=== PATIENT | male | born 1985 | race Two or more races ===

== ENCOUNTER 2018-06-30 00:35 | Emergency (ER) | payer MEDICAID ==
[~2018-06-30] VITALS: Ht 170.2 cm; Wt 75.3 kg
[2018-06-30 01:23] LABS: Basophils # (auto) 0 uL; Basophils % (auto) 0.6 % (0.0-2.0); Eosinophils # (auto) 0 uL; Eosinophils % (auto) 0.5 % (0.0-7.0); Hemoglobin 16.6 g/dL (13.5-17.5); Lymphocytes # (auto) 1.2 uL; Mean Corpuscular Hemoglobin 31.2 pg (28.0-32.0); Mean Corpuscular Hgb Conc. 34.5 g/dL (32.0-36.0); Mean Corpuscular Volume 90.6 fL (80.0-100.0); Monocytes # (auto) 0.6 uL; Monocytes % (auto) 9.1 % (0.0-12.0); Neutrophils # (auto) 4.4 uL; Neutrophils % (auto) 70.8 % (37.0-80.0); Nucleated Red Blood Cells % 0.1 %; Platelet Count (auto) 309 10^3/uL (140-450); Red Cell Distribution Width 14.5 % (11.8-14.3); White Blood Cell 6.2 10^3/uL (4.4-10.8)
[2018-06-30 01:48] LABS: Albumin 4.1 g/dL (3.4-5.0); Calcium 8.2 mg/dL (8.5-10.1); Potassium 3.8 mmol/L (3.5-5.1)
[2018-06-30 01:50] LABS: Bilirubin, Total 0.4 mg/dL (0.2-1.0); Total Protein 7.4 g/dL (6.4-8.2)
[2018-06-30 02:13] LABS: Salicylate < 1.7 mg/dL (2.8-20.0)
[2018-06-30 02:14] LABS: Acetaminophen < 2.0 ug/mL (10-30)
[2018-06-30 02:47] LABS: Partial Thromboplastin Time 26.8 sec (23.78-33.04); Prothrombin Time 10.7 sec (9.27-12.13)
[2018-06-30] MEDS ORDERED: MVI in SODIUM CHLORIDE 0.9% 1,010 ML ONE (02:58)
[2018-06-30] MEDS ORDERED: THIAMINE HCL 100 MG TAB ONE (03:00)
[2018-06-30] MEDS ORDERED: MAGNESIUM SULFATE 1GM/100ML 100 ML IV ONE ×2 (03:02→03:15)
[2018-06-30 03:10] LABS: Blood Alcohol < 3.0 mg/dL (0-5); Magnesium 2.4 mg/dL (1.6-2.6)
[2018-06-30] MEDS ORDERED: THIAMINE HCL 100 MG TAB PO ONE (03:15)
[2018-06-30 06:27] LABS: Barbiturate Scree,Urine NEGATIVE (NEGATIVE)
[2018-06-30 06:34] LABS: Urine Bacteria NONE SEEN /hpf (None Seen); Urine Blood Negative /uL (Negative); Urine Mucus FEW (None Seen); Urine Specific Gravity 1.021 (1.001-1.035); Urine WBC 1 /hpf (0 - 3)
[2018-06-30 07:24] LABS: Alcohol, Urine < 3.0 mg/dL (0-5); Amphetamine Screen, Urine POSITIVE (NEGATIVE); Benzodiazephine Screen, Urine NEGATIVE (NEGATIVE); Cannabinoid Screen, Urine POSITIVE (NEGATIVE); Cocaine Screen, Urine NEGATIVE (NEGATIVE); Opiate Scree,Urine NEGATIVE (NEGATIVE); Phencyclidine Screen, Urine NEGATIVE (NEGATIVE)
[2018-06-30 08:00] VITALS: BP 120/62
[2018-06-30] MEDS ORDERED: MULTIPLE VITAMIN 10 ML, MAGNESIUM SULF SDV 50% 8 MEQ in SODIUM CHLORIDE 0.9% 1,000 ML IV ONE (12:00)
== END 2018-06-30 08:12 | disposition home or self-care (01) ==
LOC: ER 00:41
DX: F10.129 Alcohol abuse with intoxication, unspecified (principal); F17.210 Nicotine dependence, cigarettes, uncomplicated; F15.10 Other stimulant abuse, uncomplicated; Y90.9 Presence of alcohol in blood, level not specified
CPT/HCPCS: 36415; 80053; 80307; 80320; 80329; 81001; 83735; 84484; 85025; 85610; 85730; 96365; 96366; 96368; 99283; J3411; J3475; J7030

== ENCOUNTER 2018-07-10 08:59 | Emergency (ER) | payer MEDICAID ==
[~2018-07-10] VITALS: Ht 172.7 cm; Wt 74.8 kg
[2018-07-10 10:12] LABS: Basophils # (auto) 0 uL; Basophils % (auto) 0.4 % (0.0-2.0); Eosinophils # (auto) 0 uL; Eosinophils % (auto) 0.5 % (0.0-7.0); Hemoglobin 18.3 g/dL (13.5-17.5); Lymphocytes # (auto) 1.2 uL; Mean Corpuscular Hemoglobin 30.7 pg (28.0-32.0); Monocytes # (auto) 0.5 uL
[2018-07-10 10:14] LABS: Hematocrit 54.2 % (41.0-53.0); Mean Corpuscular Hgb Conc. 33.8 g/dL (32.0-36.0); Mean Corpuscular Volume 90.7 fL (80.0-100.0); Monocytes % (auto) 8.7 % (0.0-12.0); Neutrophils # (auto) 4.2 uL; Neutrophils % (auto) 70.4 % (37.0-80.0); Nucleated Red Blood Cells % 0.8 %; Platelet Count (auto) 289 10^3/uL (140-450); Red Blood Cells 5.97 10^6/uL (4.5-5.90); Red Cell Distribution Width 14.5 % (11.8-14.3)
[2018-07-10 10:24] LABS: Albumin 4.2 g/dL (3.4-5.0); BUN/Creatinine Ratio 6.9; Calcium 9.1 mg/dL (8.5-10.1)
[2018-07-10 10:27] LABS: Bilirubin, Total 0.4 mg/dL (0.2-1.0); Total Protein 7.8 g/dL (6.4-8.2)
[2018-07-10 12:22] VITALS: BP 143/98
[2018-07-10 12:22] LABS: Urine Bacteria NONE SEEN /hpf (None Seen); Urine Blood Negative /uL (Negative); Urine Mucus FEW (None Seen); Urine Specific Gravity 1.025 (1.001-1.035); Urine WBC 1 /hpf (0 - 3)
== END 2018-07-10 12:29 | disposition home or self-care (01) ==
LOC: ER 08:59
DX: K29.70 Gastritis, unspecified, without bleeding (principal); R51 Headache; F17.210 Nicotine dependence, cigarettes, uncomplicated
CPT/HCPCS: 36415; 74176; 80053; 81001; 85025

== ENCOUNTER 2020-07-06 22:03 | Emergency (ER) | payer MEDICAID ==
[~2020-07-06] VITALS: Ht 167.6 cm; Wt 75.7 kg
[2020-07-06 22:22] VITALS: BP 150/102
== END 2020-07-06 22:15 | disposition left against medical advice (07) ==
LOC: ER 22:05
DX: S01.81XA Laceration without foreign body of other part of head, initial encounter (principal); X58.XXXA Exposure to other specified factors, initial encounter; Y93.89 Activity, other specified; Y92.89 Other specified places as the place of occurrence of the external cause; Y99.8 Other external cause status

== ENCOUNTER 2021-02-02 03:48 | Emergency (ER) | payer MEDICAID ==
[~2021-02-02] VITALS: Ht 167.6 cm; Wt 90.7 kg
[2021-02-02] MEDS ORDERED: KETOROLAC TROMETH 60MG/2ML VIAL IM ONE (04:45)
[2021-02-02] MEDS ORDERED: LIDOCAINE HCL 2% TOP JELLY 5ML TOP ONE (04:45)
[2021-02-02] MEDS ORDERED: ONDANSETRON ODT 4 MG TAB PO ONE (05:00)
[2021-02-02] MEDS ORDERED: MORPHINE SULFATE INJECTION 2 MG/ML SYRG IM ONE (05:00)
[2021-02-02 06:28] LABS: Basophils # (auto) 0.1 10 ^3/uL (0-0.2); Basophils % (auto) 1.1 % (0.0-2.0); Eosinophils # (auto) 0.1 10 ^3/uL (0-0.8); Eosinophils % (auto) 1.3 % (0.0-7.0); Hematocrit 46.5 % (41.0-53.0); Lymphocytes # (auto) 1.2 10 ^3/uL (0.4-5.4); Lymphocytes % (auto) 14.9 % (10.0-50.0); Mean Corpuscular Hemoglobin 30.8 pg (28.0-32.0); Mean Corpuscular Hgb Conc. 34.3 g/dL (32.0-36.0); Mean Corpuscular Volume 89.7 fL (80.0-100.0); Monocytes # (auto) 0.6 10 ^3/uL (0-1.3); Neutrophils % (auto) 75.7 % (37.0-80.0); Red Blood Cells 5.18 10^6/uL (4.5-5.90); Red Cell Distribution Width 13.9 % (11.8-14.3); White Blood Cell 7.9 10^3/uL (4.4-10.8)
[2021-02-02 06:36] LABS: Albumin 3.6 g/dL (3.4-5.0); Calcium 8.4 mg/dL (8.5-10.1); Potassium 3.7 mmol/L (3.5-5.1)
[2021-02-02 06:44] LABS: BUN/Creatinine Ratio 7.9; Bilirubin, Total 0.3 mg/dL (0.2-1.0); CRP High Sensitivity 3.57 mg/dL (< 0.3); Total Protein 6.8 g/dL (6.4-8.2)
[2021-02-02] MEDS ORDERED: IOHEXOL 300 MG/ML 100ML BOTTLE IJ ONE (06:57)
[2021-02-02 08:56] VITALS: BP 113/72
== END 2021-02-02 09:12 | disposition home or self-care (01) ==
LOC: ER 03:50
DX: L02.31 Cutaneous abscess of buttock (principal); K61.1 Rectal abscess; F17.210 Nicotine dependence, cigarettes, uncomplicated; E66.9 Obesity, unspecified; Z68.32 Body mass index [BMI] 32.0-32.9, adult
CPT/HCPCS: 10060; 36415; 72193; 76705; 80053; 83605; 85025; 85610; 85652; 86141; 87040; 96372; 99285; J1885; J2270; Q0162; Q9967

== ENCOUNTER 2024-09-24 19:57 | Emergency (ER) | payer MEDICAID ==
[~2024-09-24] VITALS: Ht 167.6 cm; Wt 71.5 kg
[2024-09-24 21:18] LABS: Basophils # (auto) 0.1 10 ^3/uL (0-0.2); Basophils % (auto) 0.8 % (0.0-2.0); Eosinophils # (auto) 0.1 10 ^3/uL (0-0.8); Eosinophils % (auto) 1.6 % (0.0-7.0); Hematocrit 43.8 % (41.0-53.0); Hemoglobin 15.3 g/dL (13.5-17.5); Lymphocytes % (auto) 27.5 % (10.0-50.0); Mean Corpuscular Hemoglobin 31.7 pg (28.0-32.0); Mean Corpuscular Volume 90.4 fL (80.0-100.0); Monocytes # (auto) 0.7 10 ^3/uL (0-1.3); Monocytes % (auto) 9.3 % (0.0-12.0); Neutrophils # (auto) 4.5 10 ^3/uL (1.6-8.6); Neutrophils % (auto) 60.8 % (37.0-80.0); Nucleated Red Blood Cells % 0.1 %; Platelet Count (auto) 274 10^3/uL (140-450); Red Blood Cells 4.84 10^6/uL (4.5-5.90); Red Cell Distribution Width 13.5 % (11.8-14.3); White Blood Cell 7.3 10^3/uL (4.4-10.8)
[2024-09-24 21:28] LABS: Chloride 106 mmol/L (98-107); Sodium 141 mmol/L (136-145)
[2024-09-24 21:29] LABS: Anion Gap 7 (5-15); Calcium 9.3 mg/dL (8.7-10.4); Carbon Dioxide 28 mmol/L (20-31)
[2024-09-24 21:31] LABS: Urine Bacteria None Seen /hpf (None Seen)
[2024-09-24 21:34] LABS: BUN/Creatinine Ratio 7.8 (10.0-20.0); Glucose 90 mg/dL (74-106)
--- NOTE | 2024-09-24 21:35 | ED.PDOC ---
Psychiatric HPI Comments 39 y.o male with PMHx of schizophrenia, depression, anxiety, depression and PTSD, presents to the ED for an evaluation of suicidal ideation. Patient reports planning to run into traffic to end his life with no intent of homicidal ideation. Patient reports intermittent compliance with medications. Patient has previous SI x 6 months ago. No other complaints at this time. Chief Complaint: Suicidal Time Seen by MD: 21:25 Primary Care Provider: UNK Reviewed Notes: Nurses Notes, Medications, Allergies Information Source: Patient Mode of Arrival: Ambulatory Severity of Pain: None Severity of Mental Status: Moderate Severity of Symptoms: Moderate Timing: Hours Duration: Since onset Presents with: Depression, Unclear Thinking, Suicidal Ideation Ingestion: None Circumstance: Medical Clearance Current substance abuse: Unknown Stressors: None History of: Depression, Anxiety, Schizophrenia, Bipolar, Suicidal Attempt Associated signs and symptoms: Depression Past Medical History PAST MEDICAL HISTORY: Anxiety, Depression, Schizophrenia Past Medical History (Other): PTSD and previous SI 6 months ago Surgical History: Denies all surgeries Family History Family History: Reviewed,noncontributory to illness Social History Smoker: Cigarettes, Less Than 1 Pack/Day Alcohol: Denies ETOH Use Drugs: Marijuana, Methamphetamine Lives In: Home Constitutional: denies: chills, diaphoresis, fatigue, fever, malaise, sweats, weakness, others EENTM: denies: blurred vision, double vision, ear bleeding, ear discharge, ear drainage, ear pain, ear ringing, eye pain, eye redness, hearing loss, mouth pain, mouth swelling, nasal discharge, nose bleeding, nose congestion, nose pain, photophobia, tearing, throat pain, throat swelling, voice changes, others Respiratory: denies: cough, hemoptysis, orthopnea, SOB at rest, shortness of breath, SOB with excertion, stridor, wheezing, others Cardiovascular: denies: chest pain, dizzy spells, diaphoresis, Dyspnea on exertion, edema, irregular heart beat, left arm pain, lightheadedness, palpitations, PND, syncope, others Gastrointestinal: denies: abdomen distended, abdominal pain, blood streaked bowels, constipated, diarrhea, dysphagia, difficulty swallowing, hematemesis, melena, nausea, poor appetite, poor fluid intake, rectal bleeding, rectal pain, vomiting, others Genitourinary: denies: burning, dysuria, flank pain, frequency, hematuria, incontinence, penile discharge, penile sore, pain, testicle pain, testicle swelling, urgency, others Neurological: denies: dizziness, fainting, headache, left sided numbness, left sided weakness, numbness, paresthesia, pre-existing deficit, right sided n umbness, right sided weakness, seizure, speech problems, tingling, tremors, weakness, others Musculoskeletal: denies: back pain, gout, joint pain, joint swelling, muscle pain, muscle stiffness, neck pain, others Integumetry: denies: bruises, change in color, change in hair/nails, dryness, laceration, lesions, lumps, rash, wounds, others Allergic/Immunocompromised: denies: Difficulty Healing, Frequent Infections, Hives, Itching, others Endocrine: denies: excessive hunger, excessive sweating, excessive thirst, excessive urination, flushing, intolerance to cold, intolerance to heat, unexplained weight gain, unexplained weight loss, others Psychiatric: reports: bipolar disorder, depression, suicidal; denies: anxiety, hopeless, panic disorder, schizophrenia, sleepless, others Physical Exam General Appearance: No Apparent Distress, Normal HEENT: Normal ENT Inspection, Pharynx Normal, TMs Normal Neck: Full Range of Motion, Non-Tender, Normal, Normal Inspection Respiratory: Chest Non-Tender, Lungs Clear, No Accessory Muscle Use, No Respiratory Distress, Normal Breath Sounds Cardiovascular: No Edema, No JVD, No Murmur, No Gallop, Normal Peripheral Pulses, Regular Rate/Rhythm Breast Exam: Deferred Gastrointestinal: No Organomegaly, Non Tender, No Pulsatile Mass, Normal Bowel Sounds, Soft Genitalia: Deferred Pelvic: Deferred Rectal: Deferred Extremities: No calf tenderness, Normal capillary refill, Normal inspection, Normal range of motion, Non-tender, No pedal edema Musculoskeletal : Apperance: Normal Neurologic: Alert, insulation worker II-XII nml as Tested, No Motor Deficits, Normal Affect, Normal Mood, No Sensory Deficits Cerebellar Function: Normal Reflexes: Normal Skin: Dry, Normal Color, Warm Lymphatic: No Adenopathy Was a procedure done? Was a procedure done?: No Psych Differential Dx Psych. Differential Dx: Anxiety, Bipolar Disorder, Depression, Schizoprenia, Suicidal X-Ray, Labs, Meds, VS Vital Signs Date Time Temp Pulse Resp B/P (MAP) Pulse Ox O2 Delivery O2 Flow Rate FiO2 09/24/24 21:10 97.8 71 18 124/80 (95) 98 97.8 Lab Test 09/24/24 21:08 09/24/24 20:58 Range/Units White Blood Count 7.3 4.4-10.8 10^3/uL Red Blood Count 4.84 4.5-5.90 10^6/uL Hemoglobin 15.3 13.5-17.5 g/dL Hematocrit 43.8 41.0-53.0 % Mean Corpuscular Volume 90.4 80.0-100.0 fL Mean Corpuscular Hemoglobin 31.7 28.0-32.0 pg Mean Corpuscular Hemoglobin Concent 35.0 32.0-36.0 g/dL Red Cell Distribution Width 13.5 11.8-14.3 % Platelet Count 274 140-450 10^3/uL Mean Platelet Volume 8.2 6.9-10.8 fL Neutrophils (%) (Auto) 60.8 37.0-80.0 % Lymphocytes (%) (Auto) 27.5 10.0-50.0 % Monocytes (%) (Auto) 9.3 0.0-12.0 % Eosinophils (%) (Auto) 1.6 0.0-7.0 % Basophils (%) (Auto) 0.8 0.0-2.0 % Neutrophils # (Auto) 4.5 1.6-8.6 10 ^3/uL Lymphocytes # (Auto) 2.0 0.4-5.4 10 ^3/uL Monocytes # (Auto) 0.7 0-1.3 10 ^3/uL Eosinophils # (Auto) 0.1 0-0.8 10 ^3/uL Basophils # (Auto) 0.1 0-0.2 10 ^3/uL Nucleated Red Blood Cells 0.1 % Sodium Level 141 136-145 mmol/L Potassium Level 3.3 L 3.5-5.1 mmol/L Chloride Level 106 98-107 mmol/L Carbon Dioxide Level 28 20-31 mmol/L Anion Gap 7 5-15 Blood Urea Nitrogen 8 L 9-23 mg/dL Creatinine 1.02 0.700-1.30 mg/dL Glomerular Filtration Rate Calc 96 >90 mL/min BUN/Creatinine Ratio 7.8 L 10.0-20.0 Serum Glucose 90 74-106 mg/dL Calcium Level 9.3 8.7-10.4 mg/dL Urine Color Light-yellow Yellow Urine Clarity Clear Clear Urine pH 6.0 5.0-9.0 Urine Specific [place] 1.005 1.001-1.035 Urine Protein Negative Negative Urine Ketones Negative Negative Urine Blood Negative Negative /uL Urine Nitrite Negative Negative Urine Bilirubin Negative Negative Urine Urobilinogen Normal Negative mg/dL Urine Leukocyte Esterase Negative Negative /uL Urine RBC <1 0 - 3 /hpf Urine Microscopic WBC 1 0-3 /HPF Urine Squamous Epithelial Cells None seen <5 /hpf Urine Bacteria None seen None Seen /hpf Urine Glucose Normal Normal mg/dL Urine Opiates Screen Neg NEGATIVE Urine Fentanyl Screen Neg NEGATIVE Urine Barbiturates Screen Neg NEGATIVE Urine Phencyclidine Screen Neg NEGATIVE Urine Amphetamines Screen Neg NEGATIVE Urine Benzodiazepines Screen Neg NEGATIVE Urine Cocaine Screen Neg NEGATIVE Urine Cannabinoids Screen Pos NEGATIVE X-Ray, Labs, Meds, VS Comment Spoke with Dr. George, psychiatrist, patient agrees to voluntary [id number] He recommends Depakote 500 mg b.i.d. and Zoloft 100 mg q.a.m. Time of 1ST Reevaluation: 21:31 Reevaluation 1ST: Unchanged Patient Education/Counseling: Diagnosis, Treatment, Prognosis Family Education/Counseling: No Family Present Departure 1 Departure Time of Disposition: 00:56 Impression: Primary Impression: Bipolar 1 disorder Additional Impressions: Schizophrenia Qualified Codes: F20.81 - Schizophreniform disorder Major depressive disorder Qualified Codes: F32.2 - Major depressive disorder, single episode, severe without psychotic features Suicide ideation [facility]: [facility] Condition: Stable Critical Care Note Critical Care Time?: No Stability Stability form required: No I personally scribed for RAYMOND ROSADO ([facility]) on 09/24/24 at 21:35. Electronically submitted by Ryann Diaz ([facility]). RAYMOND ROSADO Sep 24, 2024 21:35
[2024-09-24 21:39] LABS: Urine Blood Negative /uL (Negative); Urine Clarity Clear (Clear); Urine Color Light-Yellow (Yellow); Urine Protein, UAD Negative (Negative); Urine Specific Gravity 1.005 (1.001-1.035); Urine Squamous Epithelial Cell None Seen /hpf (<5); Urine Urobilinogen Normal (Negative); Urine WBC 1 /HPF (0-3)
[2024-09-24 21:59] LABS: Amphetamine Screen, Urine Neg (NEGATIVE)
[2024-09-24 22:03] LABS: Barbiturate Scree,Urine Neg (NEGATIVE); Benzodiazephine Screen, Urine Neg (NEGATIVE); Cannabinoid Screen, Urine Pos (NEGATIVE); Cocaine Screen, Urine Neg (NEGATIVE); Opiate Scree,Urine Neg (NEGATIVE); Phencyclidine Screen, Urine Neg (NEGATIVE)
[2024-09-24 22:03] LABS: Blood Urea Nitrogen 8 mg/dL (9-23); Potassium 3.3 mmol/L (3.5-5.1)
[2024-09-24 22:30] VITALS: PULSE 68; RESP 16; O2SAT 96
--- NOTE | 2024-09-25 00:54 | DVHINCON2 ---
Date of Service if different f: Sep 25, 2024 Time of Service: 00:22 Consultation ([facility]) Consulting Physician: MARGA HANNON MD Labs Laboratory Tests Test 09/24/24 20:58 09/24/24 21:08 Urine Color Light-yellow (Yellow) Urine Clarity Clear (Clear) Urine pH 6.0 (5.0-9.0) Urine Specific [place] 1.005 (1.001-1.035) Urine Protein Negative (Negative) Urine Ketones Negative (Negative) Urine Blood Negative /uL (Negative) Urine Nitrite Negative (Negative) Urine Bilirubin Negative (Negative) Urine Urobilinogen Normal mg/dL (Negative) Urine Leukocyte Esterase Negative /uL (Negative) Urine RBC <1 /hpf (0 - 3) Urine Microscopic WBC 1 /HPF (0-3) Urine Squamous Epithelial Cells None seen /hpf (<5) Urine Bacteria None seen /hpf (None Seen) Urine Glucose Normal mg/dL (Normal) Urine Opiates Screen Neg (NEGATIVE) Urine Fentanyl Screen Neg (NEGATIVE) Urine Barbiturates Screen Neg (NEGATIVE) Urine Phencyclidine Screen Neg (NEGATIVE) Urine Amphetamines Screen Neg (NEGATIVE) Urine Benzodiazepines Screen Neg (NEGATIVE) Urine Cocaine Screen Neg (NEGATIVE) Urine Cannabinoids Screen Pos (NEGATIVE) White Blood Count 7.3 10^3/uL (4.4-10.8) Red Blood Count 4.84 10^6/uL (4.5-5.90) Hemoglobin 15.3 g/dL (13.5-17.5) Hematocrit 43.8 % (41.0-53.0) Mean Corpuscular Volume 90.4 fL (80.0-100.0) Mean Corpuscular Hemoglobin 31.7 pg (28.0-32.0) Mean Corpuscular Hemoglobin Concent 35.0 g/dL (32.0-36.0) Red Cell Distribution Width 13.5 % (11.8-14.3) Platelet Count 274 10^3/uL (140-450) Mean Platelet Volume 8.2 fL (6.9-10.8) Neutrophils (%) (Auto) 60.8 % (37.0-80.0) Lymphocytes (%) (Auto) 27.5 % (10.0-50.0) Monocytes (%) (Auto) 9.3 % (0.0-12.0) Eosinophils (%) (Auto) 1.6 % (0.0-7.0) Basophils (%) (Auto) 0.8 % (0.0-2.0) Neutrophils # (Auto) 4.5 10 ^3/uL (1.6-8.6) Lymphocytes # (Auto) 2.0 10 ^3/uL (0.4-5.4) Monocytes # (Auto) 0.7 10 ^3/uL (0-1.3) Eosinophils # (Auto) 0.1 10 ^3/uL (0-0.8) Basophils # (Auto) 0.1 10 ^3/uL (0-0.2) Nucleated Red Blood Cells 0.1 % Sodium Level 141 mmol/L (136-145) Potassium Level 3.3 mmol/L (3.5-5.1) Chloride Level 106 mmol/L (98-107) Carbon Dioxide Level 28 mmol/L (20-31) Anion Gap 7 (5-15) Blood Urea Nitrogen 8 mg/dL (9-23) Creatinine 1.02 mg/dL (0.700-1.30) Glomerular Filtration Rate Calc 96 mL/min (>90) BUN/Creatinine Ratio 7.8 (10.0-20.0) Serum Glucose 90 mg/dL (74-106) Calcium Level 9.3 mg/dL (8.7-10.4) Appearance: Stated age Psychomotor activity: WNL Behavioral: Cooperative Eye contact: Appropriate Affect: Mood Congruent Mood: Depressed, Dysphoric Thought processes: Linear/Goal-directed Thought content: Hallucinations (auditory) Suicidal ideations: Present Homicidal ideations: Absent Orientation: Person, Place, Time, Situation Memory intact: Recent Intellect: Average Abstractability: WNL Concentration: Adequate Attention: Adequate Judgement: WNL Insight: Fair Vitals Vital Signs Date Time Temp Pulse Resp B/P (MAP) Pulse Ox O2 Delivery O2 Flow Rate FiO2 09/24/24 21:10 97.8 71 18 124/80 (95) 98 97.8 Treatment plan discussed: With staff Medication adjusted: Yes Labs ordered: No Type: Voluntary History of Present Illness Reason for Consult : psychiatric evaluation PER ED PHYSICIAN NOTE: 39 y.o male with PMHx of schizophrenia, depression, anxiety, depression and PTSD, presents to the ED for an evaluation of suicidal ideation. Patient reports planning to run into traffic to end his life with no intent of homicidal ideation. Patient reports intermittent compliance with medications. Patient has previous SI x 6 months ago. No other complaints at this time. PSYCHIATRIST HPI: The patient was seen and evaluated at [facility] ED via telepsychiatry platform. 39 yr old male reported he has been feeling suicidal. He stated he had been planning to kill himself for two weeks and yesterday he felt like walking into traffic. He said he remembered his mom which stopped him from doing it, but he came in to stay safe. He stated he always has voices that he hears. Lately he has felt more depressed, hopeless and helpless and sometimes overwhelmed. He feels like things are going downhill for him and he can't deal with life and just wants it to end. He stated he feels like he would kill himselff by running into traffic if he left the hospital. He denied having HI and visual hallucinations. Past Psychiatric History : 10-20 past hospitalizations, last hospitalized 6 months ago. two past suicide attempt by cutting wrist. Diagnosed with PTSD and depression and schizoaffective, bipolar type. Had been on mirtazapine, gabapentin, trazodone. Dr Overton is psychiatrist who he sees monthly. Past Medical History: none Current Psychotropic Medications: Zoloft 100mg qam Depakote DR 1000mg BID Substance use: Smokes MJ about once a week. Occasional alcohol use. Denied other substance use. Social History : Homeless for 3 years in [place]. after five yeas of marriage. 3 yr old daughter. Infrequent contact with daughter. Unemployed. Diagnosis: UNSPECIFIED PSYCHOTIC DISORDER F29 Formulation: This 39 yr old male appears to suffer from psychosis and is a moderate risk for self-harm. He would benefit from transfer to a behavioral health unit for observation, stabilization and treatment. He meets criteria for involuntary hold on basis of danger to self, but agrees tp voluntary admission to [facility]. Plan: 1. Transfer to behavioral health unit when bed available. 2. Legal-voluntary, but meets criteria for involuntary hold on basis of danger to self. 3. Medication: Recommend starting depakote DR 500mg BID, zoloft 100mg qam 4. Contact psychiatry if further evaluation or follow up is desired. 5. case discussed with ED Physician asst Kendell Klein. Assessment/Diagnosis/Plan Reviewed: Labs, Medications, Previous Orders MARGA HANNON MD Sep 25, 2024 00:22
[2024-09-25] MEDS: SERTRALINE HCL 50 MG TAB PO ONE (07:50)
[2024-09-25 08:00] VITALS: PULSE 68; RESP 16; O2SAT 96
[2024-09-25 15:00] VITALS: BP 115/75; PULSE 97; RESP 16; TEMP 98.7; O2SAT 97
== END 2024-09-25 15:15 | disposition short-term general hospital (02) ==
LOC: ER 19:57
DX: R45.851 Suicidal ideations (principal); F20.81 Schizophreniform disorder; F32.9 Major depressive disorder, single episode, unspecified; F41.9 Anxiety disorder, unspecified; F17.210 Nicotine dependence, cigarettes, uncomplicated; Z79.899 Other long term (current) drug therapy; Z91.51 Personal history of suicidal behavior
CPT/HCPCS: 36415; 80048; 80307; 81001; 85025